=== PATIENT | female | born 1955 | race African-American/Black ===

== ENCOUNTER 2017-02-21 00:47 | Emergency (ER) | payer BC ==
[~2017-02-21] VITALS: Ht 165.1 cm; Wt 84.0 kg
[~2017-02-21 00:47] MED LIST: ALLO100T; AMLO5TAB88; LOSA25TA3; MECL25TA3; levothyroxine
[2017-02-21] MEDS ORDERED: OLANZAPINE 10 MG/VIAL IM STA (01:33)
[2017-02-21] MEDS ORDERED: SODIUM CHLORIDE 0.9% 1,000 ML IV ONE (01:33)
[2017-02-21] MEDS ORDERED: ONDANSETRON HCL 4MG/2ML VIAL IV STA (01:33)
[2017-02-21 02:25] LABS: HEMATOCRIT. 35.5 % (36.0-48.0); MEAN CORPUSCULAR HEMOGLOBIN 29.7 pg (28.0-32.0); MEAN CORPUSCULAR VOLUME 87.7 fL (81.0-99.0); MEAN PLATELET VOLUME 6.9 fl (7.4-10.4); PLATELET 303 x1000/uL (130-400); RED BLOOD CELL COUNT 4.05 mill/uL (4.2-5.4); RED CELL DISTRIBUTION WIDTH 13.6 % (11.6-14.6)
[2017-02-21 02:31] LABS: AMMONIA < 25 uMol/L (<32)
[2017-02-21 02:38] LABS: CARBON DIOXIDE 28 mEq/L (21-32); CHLORIDE 106 mEq/L (98-107); ETHANOL BLOOD < 10 mg/dL; TROPONIN I < 0.02 ng/mL (0.00-0.04)
[2017-02-21] MEDS ORDERED: MIDAZOLAM HCL 2 MG/2 ML VIAL IV ONE (02:45)
[2017-02-21 03:38] LABS: PLATELET ESTIMATE NORMAL
[2017-02-21 04:38] LABS: CLARITY URINE CLEAR (CLEAR); COLOR URINE YELLOW (YELLOW); GLUCOSE URINE NEGATIVE (NEGATIVE); KETONES URINE NEGATIVE (NEGATIVE); LEUKOCYTE ESTERASE URINE 1+ (NEGATIVE); NITRITE URINE NEGATIVE (NEGATIVE); OCCULT BLOOD URINE NEGATIVE (NEGATIVE); PROTEIN URINE NEGATIVE (NEGATIVE); SPECIFIC GRAVITY URINE 1.023 (1.005-1.030); UROBILINOGEN URINE 0.2 E.U./dL (0.2-1.0)
[2017-02-21 04:48] LABS: *AMPHETAMINES SCREEN URINE NEGATIVE (NEGATIVE); *BARBITURATES SCREEN URINE NEGATIVE (NEGATIVE); *BENZODIAZEPINES SCREEN URINE PRESUMTIVE POSITIVE (NEGATIVE); *COCAINE SCREEN URINE NEGATIVE (NEGATIVE); CANNABINOID URINE SCREEN PRESUMTIVE POSITIVE (NEGATIVE); METHADONE URINE SCREEN NEGATIVE (NEGATIVE); OPIATES URINE SCREEN NEGATIVE (NEGATIVE); PHENCYCLIDINE URINE SCREEN NEGATIVE (NEGATIVE)
[2017-02-21] MEDS ORDERED: SODIUM CHLORIDE 0.9% 1,000 ML IV SCH (05:13)
[2017-02-21 08:00] VITALS: BP 161/87
== END 2017-02-21 10:32 | disposition left against medical advice (07) ==
LOC: ER 00:47 → EDBEDREQ 01:47 → CANBEDREQ 10:25 → ER 10:32
DX: R41.82 Altered mental status, unspecified (principal); F12.10 Cannabis abuse, uncomplicated; Z88.1 Allergy status to other antibiotic agents
CPT/HCPCS: 36415; 70450; 71010; 80053; 80305; 80307; 80329; 81001; 82140; 84484; 85025; 96372; 96374; 96375; 99291; G0482; J2250; J2405; J3490; J7030; Z7610

== ENCOUNTER 2019-10-30 17:58 | Inpatient (IN) | payer BC, MEDICARE, OTHER ==
[~2019-10-30] VITALS: Ht 157.5 cm; Wt 49.9 kg
[2019-10-30] MEDS ORDERED: SODIUM CHLORIDE 0.9% 1,000 ML IV ONE (19:47)
[2019-10-30] MEDS ORDERED: MORPHINE SULFATE 2 MG/ML CPJ (NOT FOR IM USE) IV ONE (20:00)
[2019-10-30 20:14] LABS: CHLORIDE 105 mEq/L (98-107)
[2019-10-30 20:15] LABS: MEAN CORPUSCULAR HEMOGLOBIN 14.3 pg (28.0-32.0); MEAN CORPUSCULAR VOLUME 53.2 fL (81.0-99.0); MEAN PLATELET VOLUME 8.3 fl (7.4-10.4); PLATELET 698 x1000/uL (130-400); RED BLOOD CELL COUNT 2.38 mill/uL (4.2-5.4)
[2019-10-30 20:19] LABS: INR 1.1; PARTIAL THROMBOPLASTIN TIME 27.7 sec (23.4-31.0); PROTHROMBIN TIME 11.7 sec (9.6-11.0)
[2019-10-30 20:22] LABS: HEMATOCRIT. 12.7 % (36.0-48.0); HEMOGLOBIN. 3.4 g/dL (12.0-16.0)
[2019-10-30 23:11] LABS: PLATELET ESTIMATE INCREASED
[2019-10-30] MEDS ORDERED: METRONIDAZOLE 500 MG PREMIX 100 ML IV ONE (23:45)
[2019-10-30] MEDS ORDERED: LEVOFLOXACIN 750MG PREMIX 150 ML IV ONE (23:45)
[2019-10-31] VITALS (25 sets, daily range): BP systolic 92–141; BP diastolic 62–92
[2019-10-31] MEDS ORDERED: LORAZEPAM 2MG/ML CPJ IV ONE (00:30)
[2019-10-31] MEDS ORDERED: ONDANSETRON HCL 4MG/2ML INJ IV PRN (02:30)
[2019-10-31] MEDS ORDERED: ACETAMINOPHEN 650MG SUPP PR PRN ×2 (02:30)
[2019-10-31] MEDS ORDERED: MORPHINE SULFATE 2 MG/ML CPJ (NOT FOR IM USE) IV PRN (02:30)
[2019-10-31] MEDS ORDERED: DEXT 5%/0.45% NACL 1000ML 1,000 ML IV SCH (06:00)
[2019-10-31] MEDS: FAMOTIDINE 20MG/2ML VIAL IV SCH ×2 (10:36→21:18)
[2019-10-31] MEDS: LORAZEPAM 2MG/ML CPJ IV PRN ×2 (10:37→16:42)
[2019-10-31 10:41] LABS: HEMATOCRIT. 22.7 % (36.0-48.0); HEMOGLOBIN. 7.1 g/dL (12.0-16.0); MEAN CORPUSCULAR HEMOGLOBIN 21.3 pg (28.0-32.0); MEAN CORPUSCULAR VOLUME 67.8 fL (81.0-99.0); MEAN PLATELET VOLUME 8.3 fl (7.4-10.4); PLATELET 476 x1000/uL (130-400); RED BLOOD CELL COUNT 3.35 mill/uL (4.2-5.4); RED CELL DISTRIBUTION WIDTH 34.4 % (11.6-14.6)
[2019-10-31 10:47] LABS: CHLORIDE 107 mEq/L (98-107)
[2019-10-31 12:38] LABS: PLATELET ESTIMATE SLIGHTL
[2019-10-31] MEDS ORDERED: FUROSEMIDE 20MG/2ML VIAL IVP NR (18:15)
[2019-10-31 23:54] LABS: HEMATOCRIT 35.1 % (36.0-48.0); HEMOGLOBIN 11.7 g/dL (12.0-16.0)
[2019-11-01] VITALS (7 sets, daily range): BP systolic 106–134; BP diastolic 68–82
[2019-11-01 05:55] LABS: HEMATOCRIT 37.6 % (36.0-48.0); HEMOGLOBIN 12.6 g/dL (12.0-16.0); MEAN CORPUSCULAR HEMOGLOBIN 24.7 pg (28.0-32.0); MEAN CORPUSCULAR VOLUME 73.7 fL (81.0-99.0); PLATELET 350 x1000/uL (130-400); RED CELL DISTRIBUTION WIDTH 29.1 % (11.6-14.6)
[2019-11-01 05:58] LABS: INR 1.1; PROTHROMBIN TIME 11.8 sec (9.6-11.0)
[2019-11-01 06:07] LABS: CHLORIDE 108 mEq/L (98-107)
[2019-11-01] MEDS ORDERED: SKIN ADHESIVE 0.7 GM EA TOP ONE (08:33)
[2019-11-01] MEDS ORDERED: BUPIVACAINE HCL 0.5% (5MG/ML) 50ML ONE (08:34)
[2019-11-01] MEDS ORDERED: FENTANYL CITRATE/PF 50MCG/ML 2ML VIAL ONE (08:44)
[2019-11-01] MEDS ORDERED: SUCCINYLCHOLINE CHLORIDE 200MG/10ML IV ONE (08:44)
[2019-11-01] MEDS ORDERED: MIDAZOLAM HCL 2 MG/2 ML VIAL ONE (08:44)
[2019-11-01] MEDS ORDERED: ROCURONIUM BROMIDE 10MG/ML VIAL 5ML IV ONE (08:44)
[2019-11-01] MEDS ORDERED: EPHEDRINE SULFATE 50MG/ML VIAL ONE (08:45)
[2019-11-01] MEDS ORDERED: PHENYLEPHRINE HCL 10 MG/ML 1ML (IV VIAL) IV ONE (08:45)
[2019-11-01] MEDS ORDERED: GLYCOPYRROLATE 0.2 MG/ML 2ML VIAL ONE (08:45)
[2019-11-01] MEDS ORDERED: PROPOFOL 200MG/20ML VIAL IV ONE (08:46)
[2019-11-01] MEDS ORDERED: CEFAZOLIN SODIUM 1000MG/VIAL ONE (08:46)
[2019-11-01] MEDS ORDERED: KCL 20MEQ/100ML PREMIX 100 ML IV SCH (09:00)
[2019-11-01] MEDS: FAMOTIDINE 20MG/2ML VIAL IV SCH ×2 (09:00→20:30)
[2019-11-01] MEDS ORDERED: ONDANSETRON HCL 4MG/2ML INJ IV PRN (10:15)
[2019-11-01] MEDS ORDERED: LEVOTHYROXINE SODIUM 100 MCG/ VIAL IV SCH (11:00)
[2019-11-01] MEDS ORDERED: DEXAMETHASONE 4MG/ML 1ML VIAL ONE ×2 (11:10→12:40)
[2019-11-01 11:30] LABS: CLARITY URINE CLEAR (CLEAR); COLOR URINE DK YELLOW (YELLOW); KETONES URINE NEGATIVE (NEGATIVE); LEUKOCYTE ESTERASE URINE 1+ (NEGATIVE); NITRITE URINE NEGATIVE (NEGATIVE); OCCULT BLOOD URINE NEGATIVE (NEGATIVE); PROTEIN URINE TRACE (NEGATIVE); SPECIFIC GRAVITY URINE 1.018 (1.005-1.030)
[2019-11-01 13:31] LABS: BG CARBOXYHEMOGLOBIN 0.9 % (0.5-1.5); BG DEOXYHEMOGLOBIN 0.4 % (0.0-5.0); BG FRACTION INSPIRED OXYGEN 100; BG HCO3 ACT 17.9 mmol/L (22.0-26.0); BG METHEMOGLOBIN 0.3 % (0.0-1.5); BG OXYGEN SATURATION 99.6 % (92.0-98.5); BG OXYHEMOGLOBIN 98.4 % (94.0-97.0); BG PH 7.423 (7.350-7.450); BG PO2 545.5 mmHg (75.0-100.0); BG SAMPLE SITE RIGHT BRACHIAL; BG TIDAL VOLUME(mL) 500 mL; BG TOTAL HEMOGLOBIN 14.3 g/dL (12.0-18.0); BG VENT MODE VENT - A/C; BG VENT RATE 12 set
[2019-11-01] MEDS ORDERED: SODIUM BICARBONATE 8.4% 1 MEQ/ML 50ML SYR IV NR (13:45)
[2019-11-01] MEDS ORDERED: SODIUM BICARBONATE 8.4% MEQ/ML 50ML VIAL IV ONE (13:59)
[2019-11-01] MEDS: DEXT 5%/0.45% NACL KCL 20MEQ/L 1,000 ML IV SCH ×2 (15:33→22:52)
[2019-11-01 16:05] LABS: BG BASE EXCESS -3.4 mmol/L (-2.0-2.0); BG CARBOXYHEMOGLOBIN 0.9 % (0.5-1.5); BG DEOXYHEMOGLOBIN 0.7 % (0.0-5.0); BG FRACTION INSPIRED OXYGEN 50; BG METHEMOGLOBIN 0.1 % (0.0-1.5); BG OXYGEN SATURATION 99.3 % (92.0-98.5); BG OXYHEMOGLOBIN 98.3 % (94.0-97.0); BG PCO2 24.3 mmHg (35.0-45.0); BG PH 7.488 (7.350-7.450); BG PO2 233.8 mmHg (75.0-100.0); BG SAMPLE SITE RIGHT BRACHIAL; BG TOTAL HEMOGLOBIN 14.8 g/dL (12.0-18.0); BG VENT MODE VENT - CPAP
[2019-11-01] MEDS ORDERED: HYDROMORPHONE HCL/PF 2MG/ML CPJ IV PRN ×2 (17:30)
[2019-11-01] MEDS: MORPHINE SULFATE 2 MG/ML CPJ (NOT FOR IM USE) IV PRN (20:33)
[2019-11-01] MEDS ORDERED: FAMOTIDINE 20MG/2ML VIAL IV SCH (21:00)
[2019-11-01] MEDS: LORAZEPAM 2MG/ML CPJ IV PRN (23:18)
[2019-11-02] VITALS (11 sets, daily range): BP systolic 91–134; BP diastolic 36–90
[2019-11-02 06:18] LABS: HEMOGLOBIN. 13.4 g/dL (12.0-16.0); MEAN CORPUSCULAR VOLUME 76.4 fL (81.0-99.0); MEAN PLATELET VOLUME 8.3 fl (7.4-10.4); PLATELET 256 x1000/uL (130-400); RED BLOOD CELL COUNT 5.36 mill/uL (4.2-5.4); RED CELL DISTRIBUTION WIDTH 27.5 % (11.6-14.6)
[2019-11-02 06:35] LABS: CHLORIDE 109 mEq/L (98-107)
[2019-11-02] MEDS: DEXT 5%/0.45% NACL KCL 20MEQ/L 1,000 ML IV SCH ×2 (08:00→20:04)
[2019-11-02] MEDS: MORPHINE SULFATE 2 MG/ML CPJ (NOT FOR IM USE) IV PRN ×3 (08:43→18:26)
[2019-11-02 18:36] LABS: PLATELET ESTIMATE NORMAL
[2019-11-02 18:39] LABS: NUCLEATED RED BLOOD CELLS 1 /100 WBC
[2019-11-02] MEDS: LORAZEPAM 2MG/ML CPJ IV PRN (20:12)
[2019-11-02] MEDS: FAMOTIDINE 20MG/2ML VIAL IV SCH (21:00)
[2019-11-03] VITALS (12 sets, daily range): BP systolic 117–173; BP diastolic 65–119
[2019-11-03] MEDS: MORPHINE SULFATE 2 MG/ML CPJ (NOT FOR IM USE) IV PRN ×5 (01:36→21:01)
[2019-11-03] MEDS: DEXT 5%/0.45% NACL KCL 20MEQ/L 1,000 ML IV SCH ×2 (06:00→13:46)
[2019-11-03] MEDS: LORAZEPAM 2MG/ML CPJ IV PRN ×2 (08:43→16:49)
[2019-11-03] MEDS: LEVOTHYROXINE SODIUM 100 MCG/ VIAL IV SCH (20:02)
[2019-11-03] MEDS: FAMOTIDINE 20MG/2ML VIAL IV SCH (20:04)
[2019-11-04] VITALS (12 sets, daily range): BP systolic 100–153; BP diastolic 52–95
[2019-11-04] MEDS: MORPHINE SULFATE 4 MG/ML CPJ (NOT FOR IM USE) IV PRN ×2 (00:24→20:01)
[2019-11-04] MEDS: LEVOTHYROXINE SODIUM 100 MCG/ VIAL IV SCH (09:20)
[2019-11-04] MEDS: DEXT 5%/0.45% NACL KCL 20MEQ/L 1,000 ML IV SCH ×3 (10:56→20:00)
[2019-11-04] MEDS: MORPHINE SULFATE 2 MG/ML CPJ (NOT FOR IM USE) IV PRN (16:11)
[2019-11-04] MEDS: FAMOTIDINE 20MG/2ML VIAL IV SCH (20:01)
[2019-11-05] VITALS (12 sets, daily range): BP systolic 124–154; BP diastolic 48–99
[2019-11-05] MEDS: LORAZEPAM 2MG/ML CPJ IV PRN (01:14)
[2019-11-05] MEDS: DEXT 5%/0.45% NACL KCL 20MEQ/L 1,000 ML IV SCH ×2 (06:00→15:42)
[2019-11-05] MEDS: LEVOTHYROXINE SODIUM 100 MCG/ VIAL IV SCH (08:34)
[2019-11-05] MEDS: MORPHINE SULFATE 2 MG/ML CPJ (NOT FOR IM USE) IV PRN ×3 (11:40→20:40)
[2019-11-05 12:05] LABS: HEMATOCRIT. 43.7 % (36.0-48.0); MEAN CORPUSCULAR HEMOGLOBIN 25.1 pg (28.0-32.0); MEAN CORPUSCULAR VOLUME 78.3 fL (81.0-99.0); MEAN PLATELET VOLUME 8.5 fl (7.4-10.4); PLATELET 293 x1000/uL (130-400); RED BLOOD CELL COUNT 5.59 mill/uL (4.2-5.4); RED CELL DISTRIBUTION WIDTH 29.8 % (11.6-14.6)
[2019-11-05] MEDS: FAMOTIDINE 20MG/2ML VIAL IV SCH (20:34)
[2019-11-06] VITALS (12 sets, daily range): BP systolic 113–146; BP diastolic 26–91
[2019-11-06] MEDS: MORPHINE SULFATE 2 MG/ML CPJ (NOT FOR IM USE) IV PRN ×3 (01:22→20:42)
[2019-11-06] MEDS: DEXT 5%/0.45% NACL KCL 20MEQ/L 1,000 ML IV SCH ×3 (02:24→23:42)
[2019-11-06 07:15] LABS: HEMATOCRIT. 41.3 % (36.0-48.0); HEMOGLOBIN. 13.5 g/dL (12.0-16.0); MEAN CORPUSCULAR HEMOGLOBIN 25.3 pg (28.0-32.0); MEAN CORPUSCULAR VOLUME 77.5 fL (81.0-99.0); MEAN PLATELET VOLUME 8.5 fl (7.4-10.4); PLATELET 335 x1000/uL (130-400); RED BLOOD CELL COUNT 5.33 mill/uL (4.2-5.4); RED CELL DISTRIBUTION WIDTH 29.7 % (11.6-14.6)
[2019-11-06] MEDS: LEVOTHYROXINE SODIUM 100 MCG/ VIAL IV SCH (08:48)
[2019-11-06 13:55] LABS: PLATELET ESTIMATE NN
[2019-11-06] MEDS: ENOXAPARIN 30MG/0.3ML SYR SUBCUT SCH (16:01)
[2019-11-06] MEDS: CEFTRIAXONE 1,000 MG in DEXTROSE 5% WATER 50 ML IV SCH (16:01)
[2019-11-06] MEDS: FAMOTIDINE 20MG/2ML VIAL IV SCH (20:41)
[2019-11-06] MEDS: BUSPIRONE HCL 5MG TABLET PO SCH (20:41)
[2019-11-06 21:25] LABS: PLATELET ESTIMATE NORMAL
[2019-11-07] VITALS (12 sets, daily range): BP systolic 122–167; BP diastolic 46–99
[2019-11-07] MEDS: MORPHINE SULFATE 2 MG/ML CPJ (NOT FOR IM USE) IV PRN ×4 (00:23→23:45)
[2019-11-07] MEDS: LEVOTHYROXINE SODIUM 88MCG TABLET PO SCH (05:35)
[2019-11-07 07:10] LABS: HEMATOCRIT. 40.6 % (36.0-48.0); HEMOGLOBIN. 13.3 g/dL (12.0-16.0); MEAN CORPUSCULAR HEMOGLOBIN 25.3 pg (28.0-32.0); MEAN CORPUSCULAR VOLUME 77.6 fL (81.0-99.0); MEAN PLATELET VOLUME 8.5 fl (7.4-10.4); PLATELET 385 x1000/uL (130-400); RED BLOOD CELL COUNT 5.23 mill/uL (4.2-5.4); RED CELL DISTRIBUTION WIDTH 29.7 % (11.6-14.6)
[2019-11-07] MEDS: CEFTRIAXONE 1,000 MG in DEXTROSE 5% WATER 50 ML IV SCH (08:45)
[2019-11-07] MEDS: ENOXAPARIN 30MG/0.3ML SYR SUBCUT SCH (09:09)
[2019-11-07] MEDS: BUSPIRONE HCL 5MG TABLET PO SCH ×2 (09:10→19:56)
[2019-11-07] MEDS: DEXT 5%/0.45% NACL KCL 20MEQ/L 1,000 ML IV SCH (12:41)
[2019-11-07 13:24] LABS: PLATELET ESTIMATE NORMAL
[2019-11-07] MEDS: FAMOTIDINE 20MG TABLET PO SCH (19:56)
[2019-11-07] MEDS: TEMAZEPAM 15MG CAPSULE PO PRN (22:18)
[2019-11-08] VITALS (12 sets, daily range): BP systolic 101–153; BP diastolic 59–87
[2019-11-08 05:56] LABS: HEMATOCRIT. 38.7 % (36.0-48.0); HEMOGLOBIN. 12.7 g/dL (12.0-16.0); MEAN CORPUSCULAR HEMOGLOBIN 25.7 pg (28.0-32.0); MEAN CORPUSCULAR VOLUME 78.5 fL (81.0-99.0); MEAN PLATELET VOLUME 8.5 fl (7.4-10.4); PLATELET 409 x1000/uL (130-400); RED BLOOD CELL COUNT 4.93 mill/uL (4.2-5.4); RED CELL DISTRIBUTION WIDTH 30.1 % (11.6-14.6)
[2019-11-08] MEDS: LEVOTHYROXINE SODIUM 88MCG TABLET PO SCH (06:17)
[2019-11-08] MEDS: CEFTRIAXONE 1,000 MG in DEXTROSE 5% WATER 50 ML IV SCH (08:35)
[2019-11-08] MEDS: ENOXAPARIN 30MG/0.3ML SYR SUBCUT SCH (08:35)
[2019-11-08] MEDS: BUSPIRONE HCL 5MG TABLET PO SCH ×2 (08:35→20:14)
[2019-11-08 09:44] LABS: PLATELET ESTIMATE SLIGHTLY INCREASED
[2019-11-08] MEDS: FAMOTIDINE 20MG TABLET PO SCH (20:14)
[2019-11-08] MEDS: MORPHINE SULFATE 2 MG/ML CPJ (NOT FOR IM USE) IV PRN (22:32)
[2019-11-09] MEDS: TEMAZEPAM 15MG CAPSULE PO PRN (01:29)
[2019-11-09] MEDS: LEVOTHYROXINE SODIUM 88MCG TABLET PO SCH (06:39)
[2019-11-09 07:04] LABS: HEMATOCRIT. 41.1 % (36.0-48.0); HEMOGLOBIN. 13.3 g/dL (12.0-16.0); MEAN CORPUSCULAR HEMOGLOBIN 25.3 pg (28.0-32.0); MEAN CORPUSCULAR VOLUME 78.2 fL (81.0-99.0); MEAN PLATELET VOLUME 8.3 fl (7.4-10.4); PLATELET 495 x1000/uL (130-400); RED BLOOD CELL COUNT 5.25 mill/uL (4.2-5.4); RED CELL DISTRIBUTION WIDTH 29.7 % (11.6-14.6)
[2019-11-09 08:00] VITALS: BP 135/82
[2019-11-09] MEDS: BUSPIRONE HCL 5MG TABLET PO SCH ×2 (09:12→21:24)
[2019-11-09] MEDS: ENOXAPARIN 30MG/0.3ML SYR SUBCUT SCH (09:12)
[2019-11-09] MEDS: CEFTRIAXONE 1,000 MG in DEXTROSE 5% WATER 50 ML IV SCH (09:12)
[2019-11-09 12:00] VITALS: BP 128/75
[2019-11-09] MEDS: MORPHINE SULFATE 2 MG/ML CPJ (NOT FOR IM USE) IV PRN (12:20)
[2019-11-09 13:06] LABS: PLATELET ESTIMATE INCREASED
[2019-11-09 16:00] VITALS: BP 123/83
[2019-11-09 20:00] VITALS: BP 135/89
[2019-11-09] MEDS: FAMOTIDINE 20MG TABLET PO SCH (21:24)
[2019-11-10] VITALS: BP 136/80
[2019-11-10 04:00] VITALS: BP 135/88
[2019-11-10] MEDS: LEVOTHYROXINE SODIUM 88MCG TABLET PO SCH ×2 (06:58→07:01)
[2019-11-10] MEDS ORDERED: HYDROCODONE/ACETAMINOPHEN 5/325MG TABLET PO PRN (07:30)
[2019-11-10] MEDS: BUSPIRONE HCL 5MG TABLET PO SCH ×2 (09:00→20:35)
[2019-11-10] MEDS: ENOXAPARIN 30MG/0.3ML SYR SUBCUT SCH (09:00)
[2019-11-10 12:00] VITALS: BP 149/77
[2019-11-10 16:15] VITALS: BP 142/78
[2019-11-10 20:00] VITALS: BP 139/96
[2019-11-10] MEDS: FAMOTIDINE 20MG TABLET PO SCH (20:35)
[2019-11-10] MEDS: TEMAZEPAM 15MG CAPSULE PO PRN (23:48)
[2019-11-11] VITALS: BP 134/69
[2019-11-11] MEDS: LEVOTHYROXINE SODIUM 88MCG TABLET PO SCH (07:11)
[2019-11-11 08:00] VITALS: BP 136/73
[2019-11-11] MEDS: BUSPIRONE HCL 5MG TABLET PO SCH (09:17)
[2019-11-11] MEDS: ENOXAPARIN 30MG/0.3ML SYR SUBCUT SCH (09:18)
[2019-11-11 12:00] VITALS: BP 129/73
[2019-11-11 16:00] VITALS: BP 146/81
[2019-11-11 20:00] VITALS: BP 148/89
[2019-11-11] MEDS ORDERED: LORAZEPAM 2MG/ML CPJ IV PRN (20:00)
[2019-11-11] MEDS: FAMOTIDINE 20MG TABLET PO SCH (21:24)
[2019-11-11] MEDS: QUETIAPINE FUMARATE 50MG TABLET PO SCH (21:25)
[2019-11-12] VITALS: BP 152/72
[2019-11-12] MEDS: TEMAZEPAM 15MG CAPSULE PO PRN (02:23)
[2019-11-12 04:00] VITALS: BP 105/66
[2019-11-12] MEDS: LEVOTHYROXINE SODIUM 88MCG TABLET PO SCH (06:33)
[2019-11-12 08:00] VITALS: BP 102/63
[2019-11-12] MEDS: ENOXAPARIN 30MG/0.3ML SYR SUBCUT SCH (08:51)
[2019-11-12] MEDS: QUETIAPINE FUMARATE 50MG TABLET PO SCH ×2 (08:51→21:19)
[2019-11-12 12:00] VITALS: BP 111/70
[2019-11-12 16:00] VITALS: BP 93/72
[2019-11-12] MEDS: HALOPERIDOL LACTATE 5MG/ML VIAL IM PRN (18:36)
[2019-11-12] MEDS: FAMOTIDINE 20MG TABLET PO SCH (21:19)
[2019-11-13] VITALS: BP 136/84
[2019-11-13 04:00] VITALS: BP 137/79
[2019-11-13] MEDS: HALOPERIDOL LACTATE 5MG/ML VIAL IM PRN (04:37)
[2019-11-13] MEDS: LEVOTHYROXINE SODIUM 88MCG TABLET PO SCH (06:46)
[2019-11-13 08:00] VITALS: BP_SYST 131; BP_SYST 140; BP_DIAS 78; BP_DIAS 81
[2019-11-13] MEDS: MULTIVITAMINS,THER W-MINERALS TABLET PO SCH (11:06)
[2019-11-13] MEDS: QUETIAPINE FUMARATE 50MG TABLET PO SCH ×2 (11:06→21:20)
[2019-11-13] MEDS: ENOXAPARIN 30MG/0.3ML SYR SUBCUT SCH (11:06)
[2019-11-13 16:00] VITALS: BP 119/69
[2019-11-13 20:00] VITALS: BP 135/79
[2019-11-13] MEDS: FAMOTIDINE 20MG TABLET PO SCH (21:20)
[2019-11-14] VITALS: BP 103/64
[2019-11-14 04:00] VITALS: BP 112/79
[2019-11-14] MEDS: LEVOTHYROXINE SODIUM 88MCG TABLET PO SCH (06:20)
[2019-11-14 08:00] VITALS: BP_SYST 136; BP_SYST 139; BP_DIAS 75; BP_DIAS 94
[2019-11-14] MEDS: MULTIVITAMINS,THER W-MINERALS TABLET PO SCH (09:06)
[2019-11-14] MEDS: QUETIAPINE FUMARATE 50MG TABLET PO SCH ×2 (09:06→20:39)
[2019-11-14] MEDS: ENOXAPARIN 30MG/0.3ML SYR SUBCUT SCH (09:07)
[2019-11-14 12:00] VITALS: BP 144/84
[2019-11-14] MEDS ORDERED: LACTULOSE 20G/30ML UDC PO PRN (13:45)
[2019-11-14] MEDS ORDERED: LACTULOSE 20G/30ML UDC PO SCH (14:00)
[2019-11-14 16:00] VITALS: BP 128/62
[2019-11-14] MEDS: MEGESTROL ACETATE 400 MG/10 ML UDC PO SCH (17:15)
[2019-11-14] MEDS: HALOPERIDOL LACTATE 5MG/ML VIAL IM PRN (19:18)
[2019-11-14 20:00] VITALS: BP 139/86
[2019-11-14] MEDS: FAMOTIDINE 20MG TABLET PO SCH (20:39)
[2019-11-15] VITALS: BP 129/89
[2019-11-15 04:00] VITALS: BP 139/81
[2019-11-15] MEDS: LEVOTHYROXINE SODIUM 88MCG TABLET PO SCH (06:46)
[2019-11-15 08:00] VITALS: BP 126/71
[2019-11-15] MEDS: MEGESTROL ACETATE 400 MG/10 ML UDC PO SCH (08:48)
[2019-11-15] MEDS: ENOXAPARIN 30MG/0.3ML SYR SUBCUT SCH (08:48)
[2019-11-15] MEDS: QUETIAPINE FUMARATE 50MG TABLET PO SCH (08:48)
[2019-11-15] MEDS: MULTIVITAMINS,THER W-MINERALS TABLET PO SCH (08:59)
[2019-11-15 15:06] VITALS: BP 119/74
== END 2019-11-15 17:18 | DRG 329 ==
LOC: ER 17:58 → 5EST 23:48 → EDBEDREQ 23:54 → EDBEDREQSVC 23:54 → EDBEDREQTM 23:54 → ENRESERV 10-31 02:36 → 5EST 11-02 07:40 → 6EST 11-08 22:35
PROVIDERS: ADMIT Internal Medicine; ATTEND Internal Medicine
PROC: 30233N1 Transfusion of Nonautologous Red Blood Cells into Peripheral Vein, Percutaneous Approach (ICD-10-PCS; 2019-10-31)
PROC: 0DTF0ZZ Resection of Right Large Intestine, Open Approach (ICD-10-PCS; principal; 2019-11-01)
DX: C18.9 Malignant neoplasm of colon, unspecified (principal); E43 Unspecified severe protein-calorie malnutrition; J96.00 Acute respiratory failure, unspecified whether with hypoxia or hypercapnia; K56.600 Partial intestinal obstruction, unspecified as to cause; R65.10 Systemic inflammatory response syndrome (SIRS) of non-infectious origin without acute organ dysfunction; Z68.1 Body mass index [BMI] 19.9 or less, adult; J98.11 Atelectasis; R64 Cachexia; D50.9 Iron deficiency anemia, unspecified; I10 Essential (primary) hypertension; F03.90 Unspecified dementia, unspecified severity, without behavioral disturbance, psychotic disturbance, mood disturbance, and anxiety; E78.5 Hyperlipidemia, unspecified; C18.0 Malignant neoplasm of cecum; E03.9 Hypothyroidism, unspecified; E87.6 Hypokalemia; F32.9 Major depressive disorder, single episode, unspecified; F41.1 Generalized anxiety disorder; R59.0 Localized enlarged lymph nodes; J44.9 Chronic obstructive pulmonary disease, unspecified; Z20.828 Contact with and (suspected) exposure to other viral communicable diseases; F17.210 Nicotine dependence, cigarettes, uncomplicated; F99 Mental disorder, not otherwise specified; D72.828 Other elevated white blood cell count; R79.89 Other specified abnormal findings of blood chemistry; Z78.1 Physical restraint status; Z88.1 Allergy status to other antibiotic agents; Z79.899 Other long term (current) drug therapy; Z68.20 Body mass index [BMI] 20.0-20.9, adult
CPT/HCPCS: 36415; 36600; 71045; 74021; 74176; 80048; 80053; 81003; 82270; 82375; 82378; 82805; 83880; 84443; 84484; 85014; 85018; 85025; 85027; 86850; 86900; 86920; 87070; 87075; 87635; 88305; 92610; 93005; 93970; 94002; 97116; 97162; 97530; 99291; J0330; J0690; J0696; J1100; J1170; J1630; J1650; J1940; J1956; J2060; J2250; J2270; J2370; J2405; J2704; J3010; J3480; J3490; J7030; J7060; P9016; P9021